=== PATIENT | female | born 1985 | race Caucasian/White ===

== ENCOUNTER 2016-12-03 19:33 | Emergency (ER) | payer BC ==
[~2016-12-03] VITALS: Ht 152.4 cm; Wt 99.3 kg
--- NOTE | 2016-12-03 23:00 | REPUSA ---
Clinical history: Pain, swelling. Findings: The right common femoral, superficial femoral, popliteal, and other deep venous structures compress normally and demonstrate normal color Doppler flow. Normal venous waveforms with augmentatio n are seen. Impression: No evidence of deep vein thrombosis in the right femoral popliteal venous system.
[2016-12-03 23:14] VITALS: BP 129/73
== END 2016-12-03 23:20 | disposition home or self-care (01) ==
LOC: M ED 20:37
DX: M79.604 Pain in right leg (principal)

== ENCOUNTER → 2022-11-16 | Outpatient (CLI) | payer BC | LOC: M RAD 10:25 | PROVIDERS: ATTEND Student in an Organized Health Care Education/Training Program | DX: M25.571 Pain in right ankle and joints of right foot (principal); M77.51 Other enthesopathy of right foot and ankle ==

== ENCOUNTER → 2023-03-17 | Outpatient (REF) | payer BC | LOC: M SFHCWAGY 13:15 | PROVIDERS: ATTEND Nurse Practitioner Family | DX: Z12.4 Encounter for screening for malignant neoplasm of cervix (principal) | CPT/HCPCS: 87624; G0123 ==

== ENCOUNTER 2024-01-19 08:51 | Emergency (ER) | payer OTHER ==
[~2024-01-19] VITALS: Ht 152.4 cm; Wt 103.8 kg
[2024-01-19] MEDS ORDERED: LEVOTAB10 PO (08:59)
[2024-01-19] MEDS ORDERED: AMOX875T2 PO (08:59)
[2024-01-19 11:27] LABS: BASO % 0.4 % (0.0-1.0); EOS # 0.2 10^3/uL (0.0-0.5); EOS % 2.8 % (0.0-3.0); HEMATOCRIT 38.1 % (36.0-47.0); LYMPH # 2.6 10^3/uL (1.5-5.0); LYMPH % 32.4 % (24.0-44.0); MEAN CORPUSCULAR HEMOGLOBIN 24.9 pg (27.0-33.0); MEAN CORPUSCULAR HGB CONC 31.5 g/dl (32.0-36.5); MEAN CORPUSCULAR VOLUME 79.2 fl (80.0-96.0); MONO # 0.6 10^3/uL (0.0-0.8); MONO % 7.2 % (2.0-8.0); NEUTROPHILS # 4.5 10^3/uL (1.5-8.5); NEUTROPHILS % 56.2 % (36.0-66.0); PLATELET COUNT, AUTOMATED 333 10^3/uL (150-450); RED BLOOD COUNT 4.81 10^6/uL (4.00-5.40); WHITE BLOOD COUNT 7.9 10^3/uL (4.0-10.0)
[2024-01-19 11:49] LABS: BLOOD UREA NITROGEN 11 MG/DL (9-23); CALCIUM LEVEL 9.3 MG/DL (8.5-10.1); CARBON DIOXIDE LEVEL 28 MMOL/L (20-31); CHLORIDE LEVEL 106 MMOL/L (98-107); CK-MB VALUE MASS < 1.0 NG/ML (<3.6); CPK CREATINE PHOSPHOKINASE 443 U/L (34-145); CREATININE FOR GFR 0.65 MG/DL (0.55-1.30); GLOMERULAR FILTRATION RATE > 60.0 (>60); GLUCOSE, FASTING 122 MG/DL (60-100); MB/CK RELATIVE INDEX 0.22 (< OR =4); POTASSIUM SERUM 3.7 MMOL/L (3.5-5.1); SODIUM LEVEL 139 MMOL/L (136-145)
[2024-01-19] MEDS ORDERED: HYDR1SYP7 PO (12:07)
[2024-01-19 12:41] VITALS: BP 122/75; TEMP 97.6; O2SAT 97
== END 2024-01-19 12:43 | disposition home or self-care (01) ==
LOC: M ED 08:51
DX: J20.9 Acute bronchitis, unspecified (principal); Z79.2 Long term (current) use of antibiotics; Z79.899 Other long term (current) drug therapy

== ENCOUNTER → 2024-03-04 | Outpatient (REF) ==
[~2024-03-04] MED LIST: AMOX875T2 PO; HYDR1SYP7 PO; LEVOTAB10 PO
== END ==
LOC: M SLEEP HO 11:00
PROVIDERS: ATTEND Physician Assistant
DX: G47.33 Obstructive sleep apnea (adult) (pediatric) (principal)

== ENCOUNTER → 2024-05-03 | Outpatient (CLI) | payer OTHER | LOC: M WHC 10:43 | PROVIDERS: ATTEND Physician Assistant | DX: Z12.31 Encounter for screening mammogram for malignant neoplasm of breast (principal); R92.8 Other abnormal and inconclusive findings on diagnostic imaging of breast ==

== ENCOUNTER → 2024-05-03 | Outpatient (REF) | payer OTHER ==
[2024-05-05 18:59] LABS: HPV APTIMA Not Detected (Not Detected)
== END ==
LOC: M SFHCWAGY 12:58
PROVIDERS: ATTEND Nurse Practitioner Family
DX: Z12.4 Encounter for screening for malignant neoplasm of cervix (principal); Z11.51 Encounter for screening for human papillomavirus (HPV); Z77.9 Other contact with and (suspected) exposures hazardous to health
CPT/HCPCS: 87624; G0123

== ENCOUNTER → 2024-05-19 | Outpatient (CLI) | payer OTHER | LOC: M WHC 08:44 | PROVIDERS: ATTEND Physician Assistant | DX: N63.20 Unspecified lump in the left breast, unspecified quadrant (principal) | CPT/HCPCS: 77065; G0279 ==

== ENCOUNTER 2025-05-16 23:15 | Emergency (ER) | payer OTHER ==
[~2025-05-16] VITALS: Ht 152.4 cm; Wt 106.6 kg
[2025-05-17 01:25] LABS: BASO # 0.0 10^3/uL (0.0-0.2); BASO % 0.3 % (0.0-1.0); EOS # 0.2 10^3/uL (0.0-0.5); EOS % 2.1 % (0.0-3.0); LYMPH # 2.2 10^3/uL (1.5-5.0); LYMPH % 19.7 % (24.0-44.0); MONO # 1.0 10^3/uL (0.0-0.8); MONO % 8.9 % (2.0-8.0); NEUTROPHILS # 7.7 10^3/uL (1.5-8.5); NEUTROPHILS % 68.3 % (36.0-66.0); PLATELET COUNT, AUTOMATED 246 10^3/uL (150-450)
[2025-05-17 01:26] LABS: APPEARANCE, URINE HAZY (CLEAR); BACTERIA, URINE AUTO 1+ (NEGATIVE); BILIRUBIN, URINE AUTO NEGATIVE (NEGATIVE); BLOOD, URINE BLOOD 3+ (NEGATIVE); GLUCOSE, URINE (UA) AUTO 3+ mg/dL (NEGATIVE); KETONE, URINE AUTO NEGATIVE (NEGATIVE); LEUKOCYTE ESTERASE, URINE AUTO NEGATIVE (NEGATIVE); MUCUS, URINE SMALL (NEGATIVE); NITRITE, URINE AUTO NEGATIVE (NEGATIVE); PROTEIN, URINE AUTO 1+ mg/dL (NEGATIVE); RBC, URINE AUTO TNTC /HPF (0-3); SPECIFIC GRAVITY URINE AUTO 1.015 (1.002-1.035); SQUAMOUS EPITHELIAL CELL UR AU 10 /HPF (0-6); UROBILINOGEN, URINE AUTO 0.2 mg/dL (0.0-2.0); WBC, URINE AUTO 3 /HPF (0-3)
[2025-05-17 07:50] LABS: ALT/SGPT 19 U/L (7.0-40); AST/SGOT 12 U/L (<34); CALCIUM LEVEL 8.4 MG/DL (8.5-10.1); CARBON DIOXIDE LEVEL 24 MMOL/L (20-31); CHLORIDE LEVEL 106 MMOL/L (98-107); CREATININE FOR GFR 0.56 MG/DL (0.55-1.30); GLOMERULAR FILTRATION RATE > 90.0 (>58); POTASSIUM SERUM 4.0 MMOL/L (3.5-5.1); SODIUM LEVEL 138 MMOL/L (136-145)
[2025-05-17 08:06] LABS: ESTIMATED AVERAGE GLUCOSE 131.0 MG/DL (60-110)
[2025-05-17] MEDS: RHOGAM 300MCG (1500IU) INJ IM ONE (09:49)
[2025-05-17 09:55] VITALS: BP 126/76; TEMP 98.5; O2SAT 97
== END 2025-05-17 09:58 | disposition home or self-care (01) ==
LOC: M ED 23:15
DX: O20.9 Hemorrhage in early pregnancy, unspecified (principal); O24.112 Pre-existing type 2 diabetes mellitus, in pregnancy, second trimester; O10.012 Pre-existing essential hypertension complicating pregnancy, second trimester; Z3A.18 18 weeks gestation of pregnancy; O30.042 Twin pregnancy, dichorionic/diamniotic, second trimester; Z79.899 Other long term (current) drug therapy
CPT/HCPCS: 76815; 80053; 81001; 83036; 84702; 85025; 86850; 86900; 86901; 87086; 96372; 99284; J2790

== ENCOUNTER → 2025-06-02 | Outpatient (CLI) | payer OTHER | LOC: M RAD 13:56 | PROVIDERS: ATTEND Student in an Organized Health Care Education/Training Program | DX: O30.002 Twin pregnancy, unspecified number of placenta and unspecified number of amniotic sacs, second trimester (principal); Z3A.18 18 weeks gestation of pregnancy ==

== ENCOUNTER 2025-06-15 11:26 | Inpatient (IN) | payer OTHER ==
[~2025-06-15] VITALS: Ht 152.4 cm; Wt 107.6 kg
[2025-06-15] VITALS (12 sets, daily range): BP systolic 112–152; BP diastolic 56–80; O2SAT 98
[2025-06-15] MEDS ORDERED: LANTINJ4 SC (11:45)
[2025-06-15] MEDS ORDERED: ASPI81CH33 PO (11:45)
[2025-06-15] MEDS ORDERED: GAVICHW5 PO (11:45)
[2025-06-15] MEDS ORDERED: METF500T13 PO (11:45)
[2025-06-15] MEDS ORDERED: PRENTAB9 PO (11:45)
[2025-06-15] MEDS ORDERED: HOME MED LIST COMPLETE! XX SCH (11:50)
[2025-06-15] MEDS ORDERED: OXYTOCIN INJ 10UNITS/ML 1ML VIAL IM PRN (11:55)
[2025-06-15] MEDS ORDERED: TRANEXAMIC ACID INJection 1,000 MG in NS 100 ML IV PRN (11:55)
[2025-06-15] MEDS ORDERED: OXYTOCIN DRIP 30 UNITS in IV 1 EA IV PRN (11:55)
[2025-06-15] MEDS ORDERED: DOCUSATE SODIUM 100 MG CAPSULE PO PRN (11:55)
[2025-06-15] MEDS ORDERED: ACETAMINOPHEN 325 MG TAB PO PRN (11:55)
[2025-06-15] MEDS ORDERED: ONDANSETRON 4MG/2ML VIAL IV PRN (11:55)
[2025-06-15] MEDS ORDERED: CARBOPROST TROMETHAMINE 250 MCG/ML AMP IM PRN (11:55)
[2025-06-15] MEDS ORDERED: LIDOCAINE 1% MDV 20 ML VIAL INFIL PRN (11:55)
[2025-06-15] MEDS: AMPICILLIN SOD 2 GM in DEXTROSE 5% (D5W) MINI-BAG PLU 100 ML IV SCH (13:11)
[2025-06-15 13:16] LABS: PLATELET COUNT, AUTOMATED 234 10^3/uL (150-450)
[2025-06-15] MEDS: AZITHROMYCIN INJ 500 MG, VIAL MATE ADAPTER 1 EACH in NS 250 ML IV SCH (13:54)
[2025-06-15] MEDS ORDERED: AMPICILLIN SOD 2 GM in APPROPRIATE DILUENT 20 ML IV SCH (14:00)
[2025-06-15] MEDS ORDERED: AMPICILLIN SOD 1 GM in APPROPRIATE DILUENT 10 ML IV SCH (15:55)
[2025-06-15 17:00] LABS: GC DNA AMPLIFICATION NEGATIVE (NEGATIVE)
[2025-06-15 17:27] LABS: HEPATITIS C VIRUS ABY INDEX < 0.02 INDEX (<0.8); HIV 1&2 SCREEN NEGATIVE (NEGATIVE)
[2025-06-15] MEDS ORDERED: LanTUS (INSULIN GLARGINE INJ) 1 UNITS/0.01 ML SC SCH (18:00)
[2025-06-15] MEDS: metFORMIN 500 MG TAB PO SCH (18:03)
[2025-06-15] MEDS: LanTUS (INSULIN GLARGINE INJ) 1 UNITS/0.01 ML SC SCH (18:05)
[2025-06-16] VITALS (16 sets, daily range): BP systolic 114–148; BP diastolic 55–86
[2025-06-16] MEDS: PRENATAL VITAMINS CHEWABLE TABLET PO SCH (08:26)
[2025-06-16] MEDS: ASPIRIN 81 MG CHEWABLE TABLET PO SCH (08:52)
[2025-06-17] VITALS: BP 111/52
[2025-06-17 04:02] VITALS: BP 120/59
[2025-06-17 08:02] VITALS: BP 116/58
[2025-06-17 12:39] VITALS: BP 144/72
[2025-06-17 16:03] VITALS: BP 125/60
[2025-06-17 20:00] VITALS: BP 142/67; TEMP 98.2; O2SAT 98
[2025-06-17] MEDS ORDERED: AMOXICILLIN 500 MG CAP PO SCH (23:00)
[2025-06-18] VITALS (7 sets, daily range): BP systolic 121–143; BP diastolic 58–70; TEMP 98.3–98.5; O2SAT 96–100
[2025-06-18] MEDS: AMOXICILLIN 500 MG CAP PO SCH (06:03)
[2025-06-19] VITALS: BP 125/58; O2SAT 97
[2025-06-19 04:00] VITALS: BP 126/60; O2SAT 98
[2025-06-19 08:00] VITALS: BP 113/64; TEMP 98; O2SAT 98
[2025-06-19 09:39] LABS: PLATELET COUNT, AUTOMATED 239 10^3/uL (150-450)
[2025-06-19 12:00] VITALS: BP 127/62; O2SAT 99
[2025-06-19 16:30] VITALS: BP 107/53; O2SAT 96
[2025-06-19 19:35] VITALS: BP 125/62; O2SAT 96
[2025-06-20] VITALS: BP 129/67; O2SAT 97
[2025-06-20 03:47] VITALS: BP 118/66; O2SAT 97
[2025-06-20 09:03] VITALS: BP 111/55; O2SAT 100
[2025-06-20 14:00] VITALS: BP 114/59; O2SAT 96
[2025-06-20 18:00] VITALS: BP 136/75; O2SAT 98
[2025-06-20 21:55] VITALS: BP 114/57; O2SAT 97
[2025-06-21 02:06] VITALS: BP 99/55; O2SAT 98
[2025-06-21 05:50] VITALS: BP 112/58; O2SAT 98
[2025-06-21 10:00] VITALS: BP 121/56; O2SAT 98
[2025-06-21 18:00] VITALS: BP 126/66; O2SAT 99
[2025-06-21 22:00] VITALS: BP 123/65; O2SAT 98
[2025-06-22 05:55] VITALS: BP 115/52; O2SAT 98
[2025-06-22 10:05] VITALS: BP 139/62; O2SAT 97
[2025-06-22 14:00] VITALS: BP 123/61; O2SAT 97
[2025-06-22 16:46] LABS: ESTIMATED AVERAGE GLUCOSE 120.0 MG/DL (60-110)
[2025-06-22 18:00] VITALS: BP 135/75; O2SAT 100
[2025-06-22] MEDS: LanTUS (INSULIN GLARGINE INJ) 1 UNITS/0.01 ML SC SCH (18:31)
[2025-06-22 22:00] VITALS: BP 115/68; O2SAT 98
[2025-06-23 02:00] VITALS: BP 119/54; O2SAT 98
[2025-06-23 06:00] VITALS: BP 127/62; O2SAT 96
[2025-06-23 09:10] VITALS: BP_SYST 116; BP_SYST 127; BP_DIAS 59; BP_DIAS 62; TEMP 97.1; O2SAT 100; O2SAT 96
[2025-06-23 14:22] VITALS: BP 132/63; O2SAT 100
[2025-06-23 17:05] VITALS: BP 127/64; O2SAT 98
[2025-06-23 22:00] VITALS: BP 133/63; O2SAT 96
[2025-06-24] VITALS (7 sets, daily range): BP systolic 113–144; BP diastolic 50–75; TEMP 97.8; O2SAT 96–100
[2025-06-25 02:15] VITALS: BP 98/44; O2SAT 97
[2025-06-25 06:05] VITALS: BP 112/53; O2SAT 97
[2025-06-25 10:45] VITALS: BP 104/52; O2SAT 98
[2025-06-25 14:00] VITALS: BP 130/60; O2SAT 98
[2025-06-25 18:00] VITALS: BP 121/67; O2SAT 99
[2025-06-25 21:44] VITALS: BP 119/63; TEMP 97.5; O2SAT 98
[2025-06-26] VITALS (8 sets, daily range): BP systolic 104–121; BP diastolic 55–61; TEMP 98.2–98.3; O2SAT 97–100
[2025-06-26] MEDS: INSULIN LISPRO (NovoLOG) PER UNIT SC SCH (13:28)
[2025-06-26] MEDS ORDERED: LanTUS (INSULIN GLARGINE INJ) 1 UNITS/0.01 ML SC SCH (18:00)
[2025-06-26] MEDS: LanTUS (INSULIN GLARGINE INJ) 1 UNITS/0.01 ML SC SCH (18:00)
[2025-06-27 02:00] VITALS: BP 98/55; O2SAT 98
[2025-06-27 06:00] VITALS: BP 110/55; O2SAT 99
[2025-06-27 10:00] VITALS: BP 111/59; O2SAT 100
[2025-06-27 14:00] VITALS: BP 114/67; O2SAT 97
[2025-06-27 18:00] VITALS: BP 132/69; O2SAT 99
[2025-06-27 22:00] VITALS: BP 125/63; O2SAT 98
[2025-06-28 02:00] VITALS: BP 97/51; O2SAT 96
[2025-06-28 06:00] VITALS: BP 114/56; O2SAT 99
[2025-06-28 10:25] VITALS: BP 139/63; O2SAT 98
[2025-06-28 11:22] LABS: PLATELET COUNT, AUTOMATED 247 10^3/uL (150-450)
[2025-06-28 14:55] VITALS: BP 114/56; O2SAT 98
[2025-06-28 17:41] VITALS: BP 114/61; O2SAT 99
[2025-06-28 22:15] VITALS: BP 103/55; O2SAT 98
[2025-06-29 02:23] VITALS: BP 99/64; O2SAT 98
[2025-06-29 06:18] VITALS: BP 93/50; O2SAT 97
[2025-06-29 13:00] VITALS: BP 118/63; O2SAT 98
[2025-06-29 18:00] VITALS: BP 122/56
[2025-06-29 21:43] VITALS: BP 116/59; O2SAT 97
[2025-06-29 21:46] VITALS: BP 122/56; TEMP 98.3; O2SAT 98
[2025-06-30 06:00] VITALS: BP 115/64; O2SAT 98
[2025-06-30 10:00] VITALS: BP 109/57; O2SAT 99
[2025-06-30 14:15] VITALS: BP 114/53; O2SAT 99
[2025-06-30 18:00] VITALS: BP 143/69; O2SAT 99
[2025-06-30 22:00] VITALS: BP 116/61; O2SAT 98
[2025-07-01 02:00] VITALS: BP 117/56; O2SAT 100
[2025-07-01 06:00] VITALS: BP 107/56; O2SAT 98
[2025-07-01 10:00] VITALS: BP 130/59; O2SAT 97
[2025-07-01] MEDS: BETAMETHASONE SOLUSPAN 6 MG/ML 5 ML VIAL IM SCH (14:54)
[2025-07-01 18:42] VITALS: BP 132/70; O2SAT 98
[2025-07-01 21:36] VITALS: BP 133/77; O2SAT 98
[2025-07-02] VITALS (7 sets, daily range): BP systolic 101–129; BP diastolic 50–71; O2SAT 97–100
[2025-07-02] MEDS: INSULIN LISPRO (NovoLOG) PER UNIT SC SCH ×2 (08:57→13:10)
[2025-07-02] MEDS: LanTUS (INSULIN GLARGINE INJ) 1 UNITS/0.01 ML SC SCH (17:56)
[2025-07-02 19:34] LABS: PLATELET COUNT, AUTOMATED 254 10^3/uL (150-450)
[2025-07-02] MEDS: INSULIN LISPRO (NovoLOG) PER UNIT SC ONE (21:12)
[2025-07-03 02:00] VITALS: BP 99/49; O2SAT 98
[2025-07-03 06:00] VITALS: BP 96/53; O2SAT 96
[2025-07-03 14:00] VITALS: BP 118/55; O2SAT 99
[2025-07-03 22:00] VITALS: BP 115/79; O2SAT 98
[2025-07-04 06:00] VITALS: BP 110/60; O2SAT 98
[2025-07-04 08:28] VITALS: BP 110/60; TEMP 98.3; O2SAT 98
[2025-07-04 10:43] LABS: BASO # 0.0 10^3/uL (0.0-0.2); BASO % 0.2 % (0.0-1.0); EOS # 0.0 10^3/uL (0.0-0.5); EOS % 0.3 % (0.0-3.0); LYMPH # 2.1 10^3/uL (1.5-5.0); LYMPH % 17.4 % (24.0-44.0); MONO # 0.9 10^3/uL (0.0-0.8); MONO % 7.7 % (2.0-8.0); NEUTROPHILS # 8.8 10^3/uL (1.5-8.5); NEUTROPHILS % 72.3 % (36.0-66.0); PLATELET COUNT, AUTOMATED 257 10^3/uL (150-450)
== END 2025-07-04 16:09 | DRG 566 ==
LOC: M LDI 11:26 → M OBS 06-18 18:32
PROVIDERS: ADMIT Advanced Practice Midwife; ATTEND Advanced Practice Midwife
DX: O42.912 Preterm premature rupture of membranes, unspecified as to length of time between rupture and onset of labor, second trimester (principal); O24.112 Pre-existing type 2 diabetes mellitus, in pregnancy, second trimester; O10.012 Pre-existing essential hypertension complicating pregnancy, second trimester; O99.352 Diseases of the nervous system complicating pregnancy, second trimester; O30.032 Twin pregnancy, monochorionic/diamniotic, second trimester; O09.512 Supervision of elderly primigravida, second trimester; Z3A.20 20 weeks gestation of pregnancy; Z79.82 Long term (current) use of aspirin; Z79.4 Long term (current) use of insulin; Z79.84 Long term (current) use of oral hypoglycemic drugs; Z79.899 Other long term (current) drug therapy; G47.00 Insomnia, unspecified